=== PATIENT | male | born 1970 | race Caucasian/White ===

== ENCOUNTER 2017-08-04 06:28 | Day surgery (SDC) | payer OTHER ==
[2017-08-04] MEDS ORDERED: NS 1,000 ML IV ONE (06:32)
[2017-08-04] MEDS ORDERED: FAMOTIDINE 20 MG TAB PO ONE (06:32)
[2017-08-04] MEDS ORDERED: DIAZEPAM 5 MG TAB PO ONE (06:32)
[2017-08-04] MEDS ORDERED: ASPIRIN EC 325 MG TAB PO ONE ×2 (06:32→06:53)
[2017-08-04] MEDS ORDERED: diphenhydrAMINE 25 MG CAP PO ONE ×2 (06:32→06:52)
--- NOTE | 2017-08-04 06:52 | CPEKG ---
Heart Rate: 49 RR Interval: 1224 P-R Interval: 172 QRSD Interval: 90 QT Interval: 496 QTC Interval: 448 P [place]: 54 QRS [place]: 56 T Wave [place]: 38 EKG Severity - ABNORMAL ECG - EKG Impression: SINUS BRADYCARDIA EKG Impression: LEFT VENTRICULAR HYPERTROPHY EKG Impression: ST ELEVATION, PROBABLE LATERAL INJURY EKG Impression: ANTERIOR ST ELEVATION, PROBABLY DUE TO LVH EKG Impression: TALL T, CONSIDER METABOLIC/ISCHEMIC ABNRM Electronically Signed By: Andreas Juan 04-Aug-2017 11:17:55
[2017-08-04] MEDS ORDERED: FAMOTIDINE 20 MG TAB ONE (06:53)
[2017-08-04] MEDS ORDERED: DIAZEPAM 5 MG TAB ONE (06:53)
[2017-08-04 07:04] LABS: PLATELET COUNT 189 10^3/uL (150-400)
[2017-08-04 07:13] LABS: INR 0.97 (0.83-1.16); PROTIME(PATIENT) 13.1 SEC (12.0-15.0)
[2017-08-04] MEDS ORDERED: fentaNYL 100 MCG/2 ML INJ ONE (07:15)
[2017-08-04] MEDS ORDERED: MIDAZOLAM 2 MG/2 ML VIAL ONE (07:15)
[2017-08-04] MEDS ORDERED: LIDOCAINE 1% 300 MG/30 ML SDV ONE (07:15)
[2017-08-04] MEDS ORDERED: HEPARIN 10,000 UNIT/10 ML MDV (1,000 UNIT/ML) ONE (07:16)
[2017-08-04] MEDS ORDERED: IOPAMIDOL (ISOVUE-370) 150 ML BTL IV ONE (07:16)
[2017-08-04] MEDS ORDERED: VERAPAMIL 5 MG/2 ML VIAL ONE ×2 (07:16→08:46)
--- NOTE | 2017-08-04 07:46 | PDHPUP ---
History & Physical Update H&P update statement: This history and physical update is based on an assessment of the patient which was completed after admission or registration (within 24 hours), but prior to the surgery/procedure. H&P update: H&P reviewed & patient examined, no change in patient's condition since H&P completed
--- NOTE | 2017-08-04 07:47 | PDPROPOC ---
Sedation Plan of Care Sedation Plan of Care: vital signs stable, mental status noted, patient educated of risks, benefits, alternatives, patient can tolerate sedation ASA Classification: ASA 2 Planned drugs: fentanyl, midazolam Mallampati Score: Class 1 Mallampati Reference Image: Patient passed 3-3-2 rule?: Yes
--- NOTE | 2017-08-04 09:54 | PDDXCAT ---
Diagnostic Cath Note - . Date: 08/04/17 Global Coordinator: Anant Indication: other (Exertional chest pain associated with elevated cardiac enzymes, abnormal EKG) - Procedure Access: right wrist Procedure: left heart catheterization, coronary angiography, left ventriculogram - Materials Left Heart Cath size: 5F - Findings-Left Heart Catheterization LM: Normal LAD: Normal, myocardial bridge LCX: Normal RCA: Dominant: Normal EDP: 9 mm of mercury LVEF: 65 Wall motion: Normal Complications: None Estimated blood loss: <50ml Closure method: TR Band Assessment: Angiographically normal coronary arteries. Normal LV systolic function. 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 Plan: Primary prevention clinical follow-up Patient Problems: Problems Problem Status Onset Pulmonary embolism and infarction Acute
== END 2017-08-04 14:32 | disposition home or self-care (01) ==
LOC: FCATH 06:28 → EEVIPCON 06:28 → FCATH 14:32
PROVIDERS: ATTEND Internal Medicine Interventional Cardiology
PROC: B2151ZZ Fluoroscopy of Left Heart using Low Osmolar Contrast (ICD-10-PCS; principal; 2017-08-04)
PROC: 4A023N7 Measurement of Cardiac Sampling and Pressure, Left Heart, Percutaneous Approach (ICD-10-PCS; principal; 2017-08-04)
PROC: B2111ZZ Fluoroscopy of Multiple Coronary Arteries using Low Osmolar Contrast (ICD-10-PCS; principal; 2017-08-04)
DX: R07.9 Chest pain, unspecified (principal); I26.99 Other pulmonary embolism without acute cor pulmonale
CPT/HCPCS: 93005; 93458; C1769; J1644; J2250; J3010; Q9967